=== PATIENT | female | born 1995 | race African-American/Black ===

== ENCOUNTER 2025-01-15 09:18 | Emergency (ER) | payer SELFPAY ==
[2025-01-15 09:33] VITALS: BP 140/68; PULSE 79; RESP 18; TEMP 36.9; O2SAT 99; BMI 21.7
--- NOTE | 2025-01-15 09:36 | ED.GENADULT ---
HPI - General Adult General Chief complaint: Upper Respiratory Symptoms Stated complaint: Wants to get Covid tested Time Seen by Provider: 01/15/25 09:23 History of Present Illness HPI narrative: 29-year-old female has three days duration of dry cough and sinus congestion, nausea without vomiting, no diarrhea. No abdominal pain, frequency of urination or painful urination, no flank pain. Denies chest pain. Requests Covid testing. No prior Covid vaccinations. Related Data Previous Rx's Medication Instructions Recorded nirmatrelvir 300 mg (150 mg See Rx Instructions PO .COMPLEX 01/15/25 x2)-ritonavir 100 mg tablet,dose #30 ea pack (Paxlovid) ondansetron 4 mg disintegrating 4 mg PO Q6H PRN nausea and 01/15/25 tablet vomiting #4 tabs Allergies Allergy/AdvReac Type Severity Reaction Status Date / Time No Known Drug Allergies Allergy Verified 01/15/25 09:43 Patient History Social History Smoking Status: Unknown if ever smoked Exam Narrative Exam Narrative: GENERAL: Well-developed patient, in mild distress. HEAD: Atraumatic. Normocephalic. EYES: Pupils equal round and reactive. Extraocular motions intact. No scleral icterus. No injection or drainage. ENT: Nose without bleeding, purulent drainage. Throat without erythema, tonsillar hypertrophy or exudate. Airway patent. Nasal congestion sounding phonation. NECK: Trachea midline. Non tender CARDIOVASCULAR: Regular rate and rhythm without murmurs, gallops, or rubs. RESPIRATORY: Clear to auscultation. Breath sounds equal bilaterally. No wheezes, rales, or rhonchi. GASTROINTESTINAL: Abdomen soft, non-tender, nondistended. EXTREMITIES: No edema or joint tenderness. BACK: Nontender without deformity or crepitance. No flank tenderness. NEURO: AOx3. Motor functions grossly nonfocal SKIN: No rash or erythema of visible areas Initial Vital Signs Initial Vital Signs: Vital Signs Temperature 98.4 F 01/15/25 09:33 Pulse Rate 79 01/15/25 09:33 Respiratory Rate 18 01/15/25 09:33 Blood Pressure 140/68 01/15/25 09:33 Pulse Oximetry 99 01/15/25 09:33 Oxygen Delivery Method Room Air 01/15/25 09:33 Course Orders Ordered: Discontinued Medications Ondansetron HCl (Ondansetron 4 Mg Odt) 4 mg SL NOW ONE Stop: 01/15/25 10:01 Last Admin: 01/15/25 10:25 Dose: 4 mg Documented By: ELIZABETH Vital Signs Vital signs: Vital Signs - 8 hr 01/15/25 09:33 Temperature 98.4 F Pulse Rate 79 Respiratory Rate 18 Blood Pressure 140/68 Pulse Oximetry 99 Oxygen Delivery Method Room Air Medical Decision Making Lab Data Labs: Lab Results 01/15/25 Range/Units 09:31 SARS-CoV-2 (PCR) Positive H (Negative) Influenza A (RT-PCR) Flu a negative (NEGATIVE) Influenza B (RT-PCR) Flu b negative (NEGATIVE) RSV (PCR) Negative (Negative) MDM Narrative Medical decision making narrative: 29-year-old female with history of 3 days cough myalgias sinus congestion requesting COVID testing. Swab sent for COVID influenza RSV. No oxygen requirement. Abdomen benign. Has had nausea without vomiting. ODT ondansetron dose given, prescription sent to her pharmacy. Covid positive, Flu negative. No prior vaccination. Discussed antiviral Paxlovid, she would like treatment, Rx course sent to her requested pharmacy. Advised self isolation 10 days. Wear mask, dispensed two disposable surgical masks from ED. Off work ten days advised. Return precautions discussed. Discharge Plan Departure Patient Disposition: Home Clinical Impression: COVID-19, Nausea Activity Restrictions/Additional Instructions: Recent 3 days cough runny nose nausea muscle aches. Request for COVID testing. Swab sent for COVID and influenza and RSV. COVID was positive, other tests were negative. Consider antiviral treatment with Paxlovid, prescription sent to local requested pharmacy if you she would like to start this course. Also anti nausea medications were sent there, oral dissolvable ondansetron, to use if needed for nausea. Consider self isolation in the next 10 days to not expose others to acute COVID illness, consider wearing a mask if tolerated while around others to decrease the spread of COVID virus. Take Tylenol and or Motrin as needed. Return if increasing shortness of breath. Drink plenty of fluids. Recheck symptoms with your regular doctor in the next 2-3 days if not improving. Return to this/nearest emergency department for any change worsening symptoms or any concerns prior. COVID illness acute, no prior COVID vaccination, self isolation advised next 10 days. Off work through self isolation advised next 10 days. Prescriptions: New ondansetron 4 mg tablet,disintegrating 4 mg PO Q6H PRN (Reason: nausea and vomiting) Qty: 4 0RF Paxlovid 300 mg (150 mg x 2)-100 mg tablets,dose pack See Rx Instructions .ROUTE .COMPLEX Qty: 30 0RF Rx Instructions: take TWO 150 mg tablets of nirmatrelvir with ONE 100 mg tablet of ritonavir twice daily for 5 days Stand Alone Forms: Patient Portal/API/Survey, Work Release Note
--- NOTE | 2025-01-15 09:39 | PC.NURSE ---
Pt reports sneezing; states nasal mucus has been green/white. Pt reports she has had sob on exertion. Pt reports her coworkers had also been sick.
[2025-01-15 10:15] LABS: COVID-19 CEPHEID 4-PLEX PCR POSITIVE (Negative); Influenza A - CEPHEID Flu A NEGATIVE (NEGATIVE); Influenza B - CEPHEID Flu B NEGATIVE (NEGATIVE); Respiratory Syncytial Virus Negative (Negative)
[2025-01-15] MEDS: ONDANSETRON 4 MG ODT SL (10:25)
[2025-01-15 11:05] VITALS: BP 138/81; PULSE 84; RESP 16; TEMP 36.9; O2SAT 94
== END 2025-01-15 11:05 | disposition home or self-care (01) ==
PROVIDERS: Emergency Provider Emergency Medicine
DX: U07.1 COVID-19 (principal); R11.0 Nausea
CPT/HCPCS: 0241U; 99283